=== PATIENT | male | born 1955 | race Caucasian/White ===

== ENCOUNTER 2018-01-12 14:02 | Inpatient (IN) | payer BC ==
[~2018-01-12] VITALS: Ht 175.3 cm; Wt 60.8 kg
--- NOTE | ~2018-01-12 | MORECARE ---
CASE MANAGEMENT DISCHARGE SUMMARY PATIENT: JANETT TORRES UNIT: [id number] ADM DATE: 01/12/18 AGE: 62 : 54 SEX: M ROOM/BED: D.1208 AUTHOR: DONATO BARILLAS PHYSICIAN: REFERRING PHYSICIAN: JAVI ANDERSON MD DATE OF SERVICE: 01/21/18 Discharge Plan Patient Name: JANETT TORRES Facility: [facility]:[place] : 1955 Planned Disposition: Anticipated Discharge Date: Discharge Date: Expected LOS: Initial Reviewer: [email or web address] Initial Review Date: 01/13/2018 Generated: 01/21/18 7:09 pm Comments DCP- Discharge Planning Updated by [id number]: Annie De La Cruz on 01/21/18 5:[address] CM received call earlier today that patient son would like to speak with me. TILA called Tacho [phone] this afternoon. He requested for patient FP doctor to call him. CM gave Dr. Bennett that request. Tacho wanting to speak to Dr. Bennett about quality of life and patient prognosis. Tacho plans to come visit with his parents this evening after he speaks with MD. Tacho wants to know what patients wishes are once he knows all the facts. Dr. Bennett attempted to call Tacho but didn't get an answer and mail box was full. CM will continue to follow and assist as needed with discharge planning / needs DCP- Discharge Planning Updated by [id number]: Miroslava Kennedy on 01/13/18 4:[address] Patient Name: JANETT TORRES Admission Status: ER Accout number: [id number] Admission Date: 01-12-2018 : 1955 Admission Diagnosis: Attending: JAVI ANDERSON Current LOS: 1 Anticipated DC Date: Planned Disposition: Primary Insurance: [employer] Discharge Planning Comments: CM MET WITH PATIENT ABOUT DC PLANNING/NEEDS. STATES PLANS TO DC HOME WITH WHEN BETTER. STATES USES A WALKER AT HOME. NO NEEDS IDENTIFIED AT THIS TIME. CM WILL FOLLOW AND ASSIST NEEDED WITH DC PLANNING/NEEDS. Boiler Repair Supervisor: Miroslava Kennedy DCPIA - Discharge Planning Initial Assessment Updated by [email or web address]: Miroslava Kennedy on 01/13/18 5:03 pm * Is the patient Alert and Oriented? Yes * PCP LEIDA * Pharmacy [facility] IN [facility] * Preadmission Environment Home with Family * ADLs Partial Dependent * Partial ADLs (Assistance needed) Ambulation * Equipment Elevated [place] Seat Shower Chair Walker * List name and contact numbers for known caregivers / representatives who currently or will assist patient after discharge: MELISSA ANDERSEN, , * Community resources currently utilized None * Has this patient been hospitalized within the prior 30 days at any hospital? No Last DP export: 01/13/18 4:11 Patient Name: JANETT TORRES Page [id number] at 1809 All edits/amendments must be made on the electronic document DICTATION DATE: 01/21/181808 WINDOWS APPLICATION PACKAGER: NIURKA 01/21/181808 RPT#: [id number] DC DATE: STATUS: ADM IN [facility] [address] [place] [address] END OF REPORT
--- NOTE | ~2018-01-12 | MORECARE ---
CASE MANAGEMENT DISCHARGE SUMMARY PATIENT: JANETT TORRES UNIT: [id number] ADM DATE: 01/12/18 AGE: 62 : 54 SEX: M ROOM/BED: D.1208 AUTHOR: DONATO BARILLAS PHYSICIAN: REFERRING PHYSICIAN: JAVI ANDERSON MD DATE OF SERVICE: 01/24/18 Discharge Plan Patient Name: JANETT TORRES Facility: [facility]:[place] : 1955 Planned Disposition: Anticipated Discharge Date: Discharge Date: 01/22/2018 Expected LOS: Initial Reviewer: [email or web address] Initial Review Date: 01/13/2018 Generated: 01/24/18 10:56 am Comments DCP- Discharge Planning Updated by [email or web address]: Marilyn Markham on 01/22/18 4:[address] 0920 CM RECEIVED TELEPHONE CALL FROM PRIMARY NURSE, , REGARDING HOSPICE. THE FAMILY HAD SPOKEN WITH [facility]. THE PATIENT'S FAMILY WAS FAMILIAR WITH [facility]. ADVISED TO CALL MD TO GET HOSPICE ORDER FOR EVALUATION AND ADMIT. 1030 CM RECEIVED TELEPHONE CALL FROM NATHANIEL FROM [facility] REGARDING PATIENT. NURSE WILL BE ON SITE TO [facility]. CM FAXED CLINICAL FOR REVIEW. 1430 MARLY FROM [facility] WAS ON SITE. AWAITED DECISION REGARDING ACCEPTANCE AND PLAN. 1715 PATIENT DISCHARGED TO HOME ON HOSPICE CARE WITH [facility]. DCP- Discharge Planning Updated by [email or web address]: Annie De La Cruz on 01/21/18 5:[address] CM received call earlier today that patient son would like to speak with me. TILA called Tacho [phone] this afternoon. He requested for patient FP doctor to call him. TILA gave Dr. Bennett that request. Tacho wanting to speak to Dr. Bennett about quality of life and patient prognosis. Tacho plans to come visit with his parents this evening after he speaks with MD. Tacho wants to know what patients wishes are once he knows all the facts. Dr. Bennett attempted to call Tacho but didn't get an answer and mail box was full. CM will continue to follow and assist as needed with discharge planning / needs DCP- Discharge Planning Updated by [email or web address]: Miroslava Kennedy on 01/13/18 4:[address] Patient Name: JANETT TORRES Admission Status: ER Accout number: [id number] Admission Date: 01-12-2018 : 1955 Admission Diagnosis: Attending: JAVI ANDERSON Current LOS: 1 Anticipated DC Date: Planned Disposition: Primary Insurance: [employer] [facility] Discharge Planning Comments: CM MET WITH PATIENT ABOUT DC PLANNING/NEEDS. STATES PLANS TO DC HOME WITH WHEN BETTER. STATES USES A WALKER AT HOME. NO NEEDS IDENTIFIED AT THIS TIME. CM WILL FOLLOW AND ASSIST NEEDED WITH DC PLANNING/NEEDS. Flue Cleaner: Miroslava Kennedy DCPIA - Discharge Planning Initial Assessment Updated by [email or web address]: Miroslava Kennedy on 01/13/18 5:03 pm * Is the patient Alert and Oriented? Yes * PCP LEIDA * Pharm[facility] * Preadmission Environment Home with Family * ADLs Partial Dependent * Partial ADLs (Assistance needed) Ambulation * Equipment Elevated [place] Seat Shower Chair Walker * List name and contact numbers for known caregivers / representatives who currently or will assist patient after discharge: MELISSA ANDERSEN, , * Community resources currently utilized None * Has this patient been hospitalized within the prior 30 days at any hospital? No Last DP export: 01/22/18 4:31 Patient Name: JANETT TORRES Page [phone] at 0956 All edits/amendments must be made on the electronic document DICTATION DATE: 01/24/18954 PLATE GLASS GRINDER: NIURKA 01/24/18954 RPT#: [id number] DC DATE:01/22/18 STATUS: DIS IN [facility] [address] [place] [address] END OF REPORT
--- NOTE | ~2018-01-12 | MORECARE ---
CASE MANAGEMENT DISCHARGE SUMMARY PATIENT: JANETT TORRES UNIT: [id number] ADM DATE: 01/12/18 AGE: 62 : 54 SEX: M ROOM/BED: D.1208 AUTHOR: ERANDOC PHYSICIAN: REFERRING PHYSICIAN: JAVI ANDERSON MD DATE OF SERVICE: 01/22/18 Discharge Plan Patient Name: JANETT TORRES Facility: [facility]:[place] : 1955 Planned Disposition: Anticipated Discharge Date: Discharge Date: Expected LOS: Initial Reviewer: [email or web address] Initial Review Date: 01/13/2018 Generated: 01/22/18 6:31 pm Comments DCP- Discharge Planning Updated by [email or web address]: Marilyn Markham on 01/22/18 4:[address] 0920 CM RECEIVED TELEPHONE CALL FROM PRIMARY NURSE, , REGARDING HOSPICE. THE FAMILY HAD SPOKEN WITH [facility]. THE PATIENT'S FAMILY WAS FAMILIAR WITH [place]. ADVISED TO CALL MD TO GET HOSPICE ORDER FOR EVALUATION AND ADMIT. 1030 CM RECEIVED TELEPHONE CALL FROM NATHANIEL FROM [facility] REGARDING PATIENT. NURSE WILL BE ON SITE TO [facility]. CM FAXED CLINICAL FOR REVIEW. 1430 MARLY FROM [place] WAS ON SITE. AWAITED DECISION REGARDING ACCEPTANCE AND PLAN. 1715 PATIENT DISCHARGED TO HOME ON HOSPICE CARE WITH [place]. DCP- Discharge Planning Updated by [email or web address]: Annie De La Cruz on 01/21/18 5:[address] CM received call earlier today that patient son would like to speak with me. TILA called Tacho [phone] this afternoon. He requested for patient FP doctor to call him. gave Dr. Bennett that request. Tacho wanting to speak to Dr. Bennett about quality of life and patient prognosis. Tacho plans to come visit with his parents this evening after he speaks with MD. Tacho wants to know what patients wishes are once he knows all the facts. Dr. Bennett attempted to call [place] but didn't get an answer and mail box was full. CM will continue to follow and assist as needed with discharge planning / needs DCP- Discharge Planning Updated by [email or web address]: Miroslava Kennedy on 01/13/18 4:[address] Patient Name: JANETT TORRES Admission Status: ER Accout number: [id number] Admission Date: 01-12-2018 : 1955 Admission Diagnosis: Attending: JAVI NADERSON Current LOS: 1 Anticipated DC Date: Planned Disposition: Primary Insurance: [employer] [facility] Discharge Planning Comments: CM MET WITH PATIENT ABOUT DC PLANNING/NEEDS. STATES PLANS TO DC HOME WITH WHEN BETTER. STATES USES A WALKER AT HOME. NO NEEDS IDENTIFIED AT THIS TIME. CM WILL FOLLOW AND ASSIST NEEDED WITH DC PLANNING/NEEDS. American Indian Policy Specialist: Miroslava Kennedy DCPIA - Discharge Planning Initial Assessment Updated by [email or web address]: Miroslava Kennedy on 01/13/18 5:03 pm * Is the patient Alert and Oriented? Yes * PCP LEIDA * Pharmacy [facility] * Preadmission Environment Home with Family * ADLs Partial Dependent * Partial ADLs (Assistance needed) Ambulation * Equipment Elevated [place] Seat Shower Chair Walker * List name and contact numbers for known caregivers / representatives who currently or will assist patient after discharge: MELISSA ANDERSEN, , * Community resources currently utilized None * Has this patient been hospitalized within the prior 30 days at any hospital? No Last DP export: 01/21/18 5:09 Patient Name: JANETT TORRES Page [phone] at 1731 All edits/amendments must be made on the electronic document DICTATION DATE: 01/22/181730 SHERIFF DETECTIVE: NIURKA 01/22/181730 RPT#: [id number] DC DATE: STATUS: ADM IN [facility] [address] [place] [address] END OF REPORT
--- NOTE | ~2018-01-12 | OP ---
PATIENT NAME: JANETT TORRES MEDICAL RECORD: [id number] :53 LOCATION:D.M3 D.1208 ADMISSION DATE:01/12/18 SURGEON: JOHN PALMER MD DATE OF OPERATION: 01/15/2018 PREOPERATIVE DIAGNOSES: 1. Pneumoperitoneum. 2. The patient will be n.p.o. and will need total parenteral nutrition via central route. 3. Stage IV lung cancer. POSTOPERATIVE DIAGNOSES: 1. Pneumoperitoneum. 2. The patient will be n.p.o. and will need total parenteral nutrition via central route. 3. Stage IV lung cancer. PROCEDURE: Insertion of right neck triple-lumen central venous catheter. SURGEON: John Palmer MD DIRECTOR OF EMPLOYEE DEVELOPMENT: None. BLOOD LOSS: Minimal. ANESTHESIA: Local. COMPLICATIONS: None. The risks, possible complications, and alternatives to procedure were explained to the patient. He elects to proceed. The risks specifically included, but was not limited to, bleeding requiring emergency reoperation, infection, worsening in his condition, the possible need for colostomy, possible need for laparotomy or laparoscopy. OPERATIVE COURSE: The patient was positioned in the Trendelenburg position. The entire procedure was performed with the presence of a nurse. The patient was somewhat combative during the procedure, which made the procedure more difficult. The right neck was sterilely prepped and draped. Local anesthetic was used to infiltrate the skin and subcutaneous tissues at the base of the right neck. The right internal jugular vein was percutaneously accessed in an antegrade fashion. A guidewire would only provide for a short distance. I accessed the internal jugular vein several other times and I could not get the guidewire to thread very far. The patient has had radiation to the chest and it may be that he has some central stenoses due to radiation. Utilizing a supraclavicular subclavian approach, I percutaneously accessed the right subclavian vein. Guidewire passed easily. A small skin sinan was accomplished. A vessel dilator was used to dilate a subcutaneous tract. A 16 cm triple lumen central venous catheter was inserted to the hub. It was sutured in place times 3. All lumens flushed easily and aspirated dark, nonpulsatile blood. OPERATIVE REPORT [id number] JANETT TORRES A stat portable chest x-ray is pending. TRANSINT:[id number] Voice Confirmation ID: [id number] DOCUMENT ID: [id number] JOHN PALMER MD at 1709 CC: [id number] DICTATION DATE: 01/15/181826 PAEDIATRIC SURGEON: 01/15/18 2254 ADM IN [place] [id number] [place] [id number]
[2018-01-12 15:04] LABS: APPEARANCE CLEAR (CLEAR); BILIRUBIN NEGATIVE (NEGATIVE); COLOR YELLOW (YELLOW); GLUCOSE NEGATIVE (NEGATIVE); KETONE NEGATIVE (NEGATIVE); NITRITE NEGATIVE (NEGATIVE); PROTEIN TRACE mg/dL (NEGATIVE); UROBILINOGEN NORMAL (NORMAL)
[2018-01-12 15:52] LABS: ALBUMIN 1.9 g/dL (3.4-5.0); ALKALINE PHOSPHATASE 103 U/L (46-116); ALT (SGPT) 27 U/L (10-68); BILIRUBIN - TOTAL 0.36 mg/dL (0.2-1.3); CALC OSMOLALITY 281 mosm/kg (275-300); CALCIUM 8.8 mg/dL (8.5-10.1); CARBON DIOXIDE 26.8 mmol/L (21.0-32.0); CHLORIDE - SERUM 103 mmol/L (98-107); CREATININE - SERUM 0.7 mg/dL (0.6-1.3); GLUCOSE 122 mg/dL (74-106); POTASSIUM - SERUM 4.3 mmol/L (3.5-5.1); PROTEIN - SERUM 5.3 g/dL (6.4-8.2); SODIUM 140 mmol/L (136-145); UREA NITROGEN 19 mg/dL (7-18); eGFR NON AFRICAN AMERICAN > 90 mL/min (90-120)
[2018-01-12 16:02] LABS: CKMB 1.1 U/L (0.0-3.6); CREATINE KINASE 14 UL (21-232); LIPASE 293 U/L (73-393)
[2018-01-12 16:06] LABS: BASOPHILS 0.4 % (0-2); EOSINOPHILS 0.4 % (0-7); HEMATOCRIT 36.8 % (42.0-54.0); HEMOGLOBIN 12.1 g/dL (13.5-17.5); IMMATURE GRANULOCYTES 1.3 % (0-5); LYMPHOCYTES 11.9 % (15-50); MCH 26.2 pg (26.0-34.0); MCHC 32.9 g/dL (31.0-37.0); MCV 79.8 fL (80.0-100.0); MONOCYTES 5.6 % (2-11); NEUTROPHILS 80.4 % (40-80); PLATELET COUNT 116 10x3/uL (130-400); RBC 4.61 10x6/uL (4.20-6.10); RDW 21.6 % (11.5-14.5); TROPONIN-I < 0.017 ng/mL (0.000-0.060); WBC 5.4 10x3/uL (4.8-10.8)
[2018-01-12 20:00] VITALS: BP 92/56
[2018-01-12 23:17] VITALS: BP 92/56; BMI 19.8
[2018-01-13] VITALS (7 sets, daily range): BP systolic 88–122; BP diastolic 53–76; BMI 19.8
[2018-01-13] MEDS ORDERED: XANAX0.5 MG PO (03:23)
[2018-01-13] MEDS ORDERED: ASPIRIN325 MG PO (03:24)
[2018-01-13] MEDS ORDERED: LIPITOR40 MG PO (03:24)
[2018-01-13] MEDS ORDERED: COLACE100 MG PO (03:25)
[2018-01-13] MEDS ORDERED: DECADRON4 MG PO (03:25)
[2018-01-13] MEDS ORDERED: REMERON30 MG PO (03:26)
[2018-01-13] MEDS ORDERED: LOPRESSOR25 MG PO (03:26)
[2018-01-13] MEDS ORDERED: OXYCODONE-APAP1 TAB PO (03:27)
[2018-01-13] MEDS ORDERED: FOLIC ACID1 MG PO (03:28)
[2018-01-13 08:13] LABS: BASOPHILS 0.1 % (0-2); EOSINOPHILS 0 % (0-7); HEMATOCRIT 33.1 % (42.0-54.0); HEMOGLOBIN 10.5 g/dL (13.5-17.5); IMMATURE GRANULOCYTES 1.6 % (0-5); LYMPHOCYTES 9.9 % (15-50); MCH 25.7 pg (26.0-34.0); MCHC 31.7 g/dL (31.0-37.0); MCV 80.9 fL (80.0-100.0); MONOCYTES 5.5 % (2-11); NEUTROPHILS 82.9 % (40-80); PLATELET COUNT 101 10x3/uL (130-400); RBC 4.09 10x6/uL (4.20-6.10); RDW 21.8 % (11.5-14.5)
[2018-01-13 08:22] LABS: WBC 8.1 10x3/uL (4.8-10.8)
[2018-01-13 08:39] LABS: CALC OSMOLALITY 269 mosm/kg (275-300); CALCIUM 8.9 mg/dL (8.5-10.1); CARBON DIOXIDE 20.4 mmol/L (21.0-32.0); CHLORIDE - SERUM 104 mmol/L (98-107); GLUCOSE 78 mg/dL (74-106); POTASSIUM - SERUM 4.2 mmol/L (3.5-5.1); SODIUM 135 mmol/L (136-145); UREA NITROGEN 15 mg/dL (7-18)
[2018-01-13 08:41] LABS: CREATININE - SERUM 0.4 mg/dL (0.6-1.3); eGFR NON AFRICAN AMERICAN > 90 mL/min (90-120)
[2018-01-13 10:57] LABS: FERRITIN 615 ng/mL (3-244); PRO BNP 1934 pg/mL (0-125)
[2018-01-13 11:28] LABS: % SATURATION 6 % (15-55); IRON 9 ug/dl (35-150); TOTAL IRON BIND CAPACITY 144 ug/dl (260-445); UNSAT IRON BIND CAPACITY 135 ug/dl (150-375)
[2018-01-14 04:00] VITALS: BP 111/64
[2018-01-14 05:41] LABS: BASOPHILS 0.1 % (0-2); EOSINOPHILS 0 % (0-7); HEMATOCRIT 33.9 % (42.0-54.0); IMMATURE GRANULOCYTES 2.9 % (0-5); LYMPHOCYTES 4.1 % (15-50); MCH 25.9 pg (26.0-34.0); MCHC 32.4 g/dL (31.0-37.0); MCV 79.8 fL (80.0-100.0); MONOCYTES 2.7 % (2-11); NEUTROPHILS 90.2 % (40-80); RBC 4.25 10x6/uL (4.20-6.10); RDW 21.6 % (11.5-14.5)
[2018-01-14 05:43] LABS: PLATELET COUNT 124 10x3/uL (130-400); WBC 11.8 10x3/uL (4.8-10.8)
[2018-01-14 05:47] LABS: CALC OSMOLALITY 272 mosm/kg (275-300); CALCIUM 8.7 mg/dL (8.5-10.1); CARBON DIOXIDE 22.3 mmol/L (21.0-32.0); CHLORIDE - SERUM 104 mmol/L (98-107); CREATININE - SERUM 0.3 mg/dL (0.6-1.3); GLUCOSE 104 mg/dL (74-106); POTASSIUM - SERUM 3.8 mmol/L (3.5-5.1); SODIUM 137 mmol/L (136-145); UREA NITROGEN 11 mg/dL (7-18); eGFR NON AFRICAN AMERICAN > 90 mL/min (90-120)
[2018-01-14 07:52] VITALS: BP 111/69
[2018-01-14 08:21] LABS: FOLATE (FOLIC ACID) - SERUM 16.3 ng/mL (>3.0)
[2018-01-14 11:32] VITALS: BP 94/56
[2018-01-14 15:28] VITALS: BP 118/60
[2018-01-14 20:06] VITALS: BP 127/68
[2018-01-15] VITALS (7 sets, daily range): BP systolic 110–160; BP diastolic 63–77; Ht 175.3 cm; Wt 60.8 kg
[2018-01-15 06:27] LABS: BASOPHILS 0.1 % (0-2); EOSINOPHILS 0 % (0-7); HEMATOCRIT 35.3 % (42.0-54.0); HEMOGLOBIN 11.5 g/dL (13.5-17.5); IMMATURE GRANULOCYTES 3.3 % (0-5); LYMPHOCYTES 4.7 % (15-50); MCH 25.8 pg (26.0-34.0); MCHC 32.6 g/dL (31.0-37.0); MCV 79.3 fL (80.0-100.0); MEAN PLATELET VOLUME 10.8 fL (7.4-10.4); MONOCYTES 5.1 % (2-11); NEUTROPHILS 86.8 % (40-80); RBC 4.45 10x6/uL (4.20-6.10); RDW 21.5 % (11.5-14.5)
[2018-01-15 06:31] LABS: PLATELET COUNT 151 10x3/uL (130-400); WBC 15.2 10x3/uL (4.8-10.8)
[2018-01-15 06:44] LABS: CARBON DIOXIDE 22.4 mmol/L (21.0-32.0); CHLORIDE - SERUM 106 mmol/L (98-107); GLUCOSE 112 mg/dL (74-106); POTASSIUM - SERUM 3.8 mmol/L (3.5-5.1); SODIUM 139 mmol/L (136-145)
[2018-01-15 06:46] LABS: CALC OSMOLALITY 279 mosm/kg (275-300); UREA NITROGEN 14 mg/dL (7-18)
[2018-01-15 06:47] LABS: CREATININE - SERUM 0.5 mg/dL (0.6-1.3); eGFR NON AFRICAN AMERICAN > 90 mL/min (90-120)
[2018-01-16 00:04] VITALS: BP 120/75
[2018-01-16 06:31] LABS: HEMATOCRIT 36.9 % (42.0-54.0); HEMOGLOBIN 12.1 g/dL (13.5-17.5); MCH 26.1 pg (26.0-34.0); MCHC 32.8 g/dL (31.0-37.0); MCV 79.7 fL (80.0-100.0); MEAN PLATELET VOLUME 10.3 fL (7.4-10.4); PLATELET COUNT 183 10x3/uL (130-400); RBC 4.63 10x6/uL (4.20-6.10); RDW 21.5 % (11.5-14.5); WBC 28.2 10x3/uL (4.8-10.8)
[2018-01-16 06:59] VITALS: BP 152/73
[2018-01-16 06:59] LABS: ALKALINE PHOSPHATASE 114 U/L (46-116); ALT (SGPT) 33 U/L (10-68); AMYLASE - SERUM 47 U/L (25-115); BILIRUBIN - TOTAL 0.34 mg/dL (0.2-1.3); CALC OSMOLALITY 274 mosm/kg (275-300); CALCIUM 8.9 mg/dL (8.5-10.1); CARBON DIOXIDE 18.2 mmol/L (21.0-32.0); CHLORIDE - SERUM 104 mmol/L (98-107); GLUCOSE 87 mg/dL (74-106); LIPASE 97 U/L (73-393); MAGNESIUM - SERUM 1.6 mg/dL (1.8-2.4); PHOSPHOROUS 3.8 mg/dL (2.5-4.9); POTASSIUM - SERUM 4.1 mmol/L (3.5-5.1); PROTEIN - SERUM 6.1 g/dL (6.4-8.2); SODIUM 137 mmol/L (136-145); UREA NITROGEN 17 mg/dL (7-18)
[2018-01-16 07:00] LABS: CREATININE - SERUM 0.7 mg/dL (0.6-1.3); TROPONIN-I < 0.017 ng/mL (0.000-0.060); eGFR NON AFRICAN AMERICAN > 90 mL/min (90-120)
[2018-01-16 07:25] LABS: LYMPHOCYTES 13 % (15-50); MONOCYTES 4 % (2-11); NEUTROPHILS 80 % (40-80); PLATELET ESTIMATE DECREASED
[2018-01-16 08:00] VITALS: BP 128/74
[2018-01-16 16:00] VITALS: BP 110/67
[2018-01-16 19:51] VITALS: BP 134/77
[2018-01-17 04:00] VITALS: BP 121/66
[2018-01-17 05:50] LABS: CALC OSMOLALITY 274 mosm/kg (275-300); CALCIUM 8.8 mg/dL (8.5-10.1); CARBON DIOXIDE 22.6 mmol/L (21.0-32.0); CHLORIDE - SERUM 103 mmol/L (98-107); CREATININE - SERUM 0.6 mg/dL (0.6-1.3); GLUCOSE 91 mg/dL (74-106); POTASSIUM - SERUM 3.8 mmol/L (3.5-5.1); SODIUM 137 mmol/L (136-145); UREA NITROGEN 15 mg/dL (7-18); eGFR NON AFRICAN AMERICAN > 90 mL/min (90-120)
[2018-01-17 06:21] LABS: BASOPHILS 0.1 % (0-2); EOSINOPHILS 0 % (0-7); HEMATOCRIT 34.5 % (42.0-54.0); HEMOGLOBIN 11.1 g/dL (13.5-17.5); IMMATURE GRANULOCYTES 3.8 % (0-5); LYMPHOCYTES 5.7 % (15-50); MCH 25.8 pg (26.0-34.0); MCHC 32.2 g/dL (31.0-37.0); MEAN PLATELET VOLUME 11.1 fL (7.4-10.4); MONOCYTES 8.3 % (2-11); NEUTROPHILS 82.1 % (40-80); PLATELET COUNT 214 10x3/uL (130-400); RBC 4.31 10x6/uL (4.20-6.10); RDW 21.3 % (11.5-14.5); WBC 25.9 10x3/uL (4.8-10.8)
[2018-01-17 07:36] VITALS: BP 102/56
[2018-01-17 12:00] VITALS: BP 102/57
[2018-01-17 16:00] VITALS: BP 116/67
[2018-01-17 19:57] VITALS: BP 99/57
[2018-01-18 04:00] VITALS: BP 108/64
[2018-01-18 06:19] LABS: BASOPHILS 0.1 % (0-2); EOSINOPHILS 0 % (0-7); HEMATOCRIT 32.7 % (42.0-54.0); HEMOGLOBIN 10.5 g/dL (13.5-17.5); IMMATURE GRANULOCYTES 4.5 % (0-5); MCH 26.2 pg (26.0-34.0); MCHC 32.1 g/dL (31.0-37.0); MCV 81.5 fL (80.0-100.0); MEAN PLATELET VOLUME 11.1 fL (7.4-10.4); MONOCYTES 4.7 % (2-11); NEUTROPHILS 85.7 % (40-80); PLATELET COUNT 186 10x3/uL (130-400); RBC 4.01 10x6/uL (4.20-6.10); RDW 21.5 % (11.5-14.5); WBC 30.5 10x3/uL (4.8-10.8)
[2018-01-18 07:28] LABS: CALCIUM 8.4 mg/dL (8.5-10.1); CARBON DIOXIDE 25.2 mmol/L (21.0-32.0); CHLORIDE - SERUM 100 mmol/L (98-107); CREATININE - SERUM 0.6 mg/dL (0.6-1.3); MAGNESIUM - SERUM 1.8 mg/dL (1.8-2.4); PHOSPHOROUS 2.5 mg/dL (2.5-4.9); SODIUM 134 mmol/L (136-145); UREA NITROGEN 15 mg/dL (7-18); eGFR NON AFRICAN AMERICAN > 90 mL/min (90-120)
[2018-01-18 07:29] LABS: CALC OSMOLALITY 280 mosm/kg (275-300); GLUCOSE 314 mg/dL (74-106); POTASSIUM - SERUM 3.2 mmol/L (3.5-5.1)
[2018-01-18 08:28] VITALS: BP 120/78
[2018-01-18 20:25] VITALS: BP 107/57
[2018-01-19 00:33] VITALS: BP 124/53
[2018-01-19 05:19] VITALS: BP 105/51
[2018-01-19 06:19] LABS: BASOPHILS 0.1 % (0-2); EOSINOPHILS 0 % (0-7); HEMATOCRIT 29.8 % (42.0-54.0); HEMOGLOBIN 9.5 g/dL (13.5-17.5); IMMATURE GRANULOCYTES 2.7 % (0-5); LYMPHOCYTES 5.1 % (15-50); MCH 25.7 pg (26.0-34.0); MCHC 31.9 g/dL (31.0-37.0); MCV 80.5 fL (80.0-100.0); MEAN PLATELET VOLUME 10.5 fL (7.4-10.4); MONOCYTES 3.9 % (2-11); NEUTROPHILS 88.2 % (40-80); PLATELET COUNT 198 10x3/uL (130-400); RDW 21.6 % (11.5-14.5); WBC 26.5 10x3/uL (4.8-10.8)
[2018-01-19 06:47] LABS: ALBUMIN 1.6 g/dL (3.4-5.0); ALKALINE PHOSPHATASE 86 U/L (46-116); ALT (SGPT) 14 U/L (10-68); BILIRUBIN - TOTAL 0.32 mg/dL (0.2-1.3); CALC OSMOLALITY 277 mosm/kg (275-300); CALCIUM 8.4 mg/dL (8.5-10.1); CARBON DIOXIDE 25.9 mmol/L (21.0-32.0); CHLORIDE - SERUM 105 mmol/L (98-107); CREATININE - SERUM 0.6 mg/dL (0.6-1.3); GLUCOSE 85 mg/dL (74-106); MAGNESIUM - SERUM 1.8 mg/dL (1.8-2.4); PHOSPHOROUS 2.5 mg/dL (2.5-4.9); POTASSIUM - SERUM 3.4 mmol/L (3.5-5.1); SODIUM 139 mmol/L (136-145); UREA NITROGEN 14 mg/dL (7-18); VANCOMYCIN - TROUGH 17.4 ug/mL (10.0-20.0); eGFR NON AFRICAN AMERICAN > 90 mL/min (90-120)
[2018-01-19 07:19] VITALS: BP 132/62
[2018-01-19 11:34] VITALS: BP 114/61
[2018-01-19 15:20] VITALS: BP 113/60
[2018-01-19 20:00] VITALS: BP 93/54
[2018-01-20] VITALS (7 sets, daily range): BP systolic 100–126; BP diastolic 58–65
[2018-01-20 06:57] LABS: BASOPHILS 0.1 % (0-2); EOSINOPHILS 0 % (0-7); HEMATOCRIT 29.5 % (42.0-54.0); HEMOGLOBIN 9.6 g/dL (13.5-17.5); IMMATURE GRANULOCYTES 1.8 % (0-5); LYMPHOCYTES 3.5 % (15-50); MCH 26.4 pg (26.0-34.0); MCHC 32.5 g/dL (31.0-37.0); MCV 81.3 fL (80.0-100.0); MEAN PLATELET VOLUME 10.5 fL (7.4-10.4); MONOCYTES 3.9 % (2-11); NEUTROPHILS 90.7 % (40-80); PLATELET COUNT 199 10x3/uL (130-400); RBC 3.63 10x6/uL (4.20-6.10); RDW 22.1 % (11.5-14.5); WBC 37.2 10x3/uL (4.8-10.8)
[2018-01-20 07:16] LABS: ALBUMIN 1.5 g/dL (3.4-5.0); ALKALINE PHOSPHATASE 109 U/L (46-116); ALT (SGPT) 14 U/L (10-68); BILIRUBIN - TOTAL 0.45 mg/dL (0.2-1.3); CALC OSMOLALITY 274 mosm/kg (275-300); CALCIUM 8.5 mg/dL (8.5-10.1); CARBON DIOXIDE 24.2 mmol/L (21.0-32.0); CHLORIDE - SERUM 104 mmol/L (98-107); CREATININE - SERUM 0.6 mg/dL (0.6-1.3); GLUCOSE 140 mg/dL (74-106); MAGNESIUM - SERUM 1.8 mg/dL (1.8-2.4); POTASSIUM - SERUM 3.1 mmol/L (3.5-5.1); PROTEIN - SERUM 5.1 g/dL (6.4-8.2); SODIUM 136 mmol/L (136-145); UREA NITROGEN 14 mg/dL (7-18); VANCOMYCIN - TROUGH 19.8 ug/mL (10.0-20.0); eGFR NON AFRICAN AMERICAN > 90 mL/min (90-120)
[2018-01-21 04:00] VITALS: BP 125/59
[2018-01-21 06:41] LABS: BASOPHILS 0.1 % (0-2); EOSINOPHILS 0.1 % (0-7); HEMATOCRIT 29.1 % (42.0-54.0); HEMOGLOBIN 9.3 g/dL (13.5-17.5); IMMATURE GRANULOCYTES 1.4 % (0-5); LYMPHOCYTES 3.8 % (15-50); MCH 26.1 pg (26.0-34.0); MCV 81.7 fL (80.0-100.0); MONOCYTES 3.6 % (2-11); PLATELET COUNT 208 10x3/uL (130-400); RBC 3.56 10x6/uL (4.20-6.10); RDW 22.6 % (11.5-14.5); WBC 36.6 10x3/uL (4.8-10.8)
[2018-01-21 06:58] LABS: ALBUMIN 1.5 g/dL (3.4-5.0); ALKALINE PHOSPHATASE 122 U/L (46-116); ALT (SGPT) 14 U/L (10-68); BILIRUBIN - TOTAL 0.49 mg/dL (0.2-1.3); CALC OSMOLALITY 272 mosm/kg (275-300); CALCIUM 8.4 mg/dL (8.5-10.1); CARBON DIOXIDE 19.5 mmol/L (21.0-32.0); CHLORIDE - SERUM 105 mmol/L (98-107); CREATININE - SERUM 0.6 mg/dL (0.6-1.3); GLUCOSE 136 mg/dL (74-106); MAGNESIUM - SERUM 1.8 mg/dL (1.8-2.4); PHOSPHOROUS 2.4 mg/dL (2.5-4.9); POTASSIUM - SERUM 3.5 mmol/L (3.5-5.1); PROTEIN - SERUM 5.2 g/dL (6.4-8.2); SODIUM 135 mmol/L (136-145); UREA NITROGEN 16 mg/dL (7-18); eGFR NON AFRICAN AMERICAN > 90 mL/min (90-120)
[2018-01-21 08:09] VITALS: BP 107/67
[2018-01-21 17:00] VITALS: BP 104/80
[2018-01-21 19:25] VITALS: BP 102/53
[2018-01-22 00:32] VITALS: BP 104/62
[2018-01-22 04:45] VITALS: BP 105/55
[2018-01-22 06:40] LABS: BASOPHILS 0.1 % (0-2); EOSINOPHILS 0 % (0-7); HEMOGLOBIN 9.5 g/dL (13.5-17.5); LYMPHOCYTES 3.1 % (15-50); MCH 26.3 pg (26.0-34.0); MCHC 32.8 g/dL (31.0-37.0); MCV 80.3 fL (80.0-100.0); MEAN PLATELET VOLUME 11.1 fL (7.4-10.4); MONOCYTES 5.4 % (2-11); NEUTROPHILS 90.4 % (40-80); PLATELET COUNT 233 10x3/uL (130-400); RBC 3.61 10x6/uL (4.20-6.10); RDW 22.7 % (11.5-14.5)
[2018-01-22 06:49] LABS: ALBUMIN 1.6 g/dL (3.4-5.0); ALKALINE PHOSPHATASE 138 U/L (46-116); BILIRUBIN - TOTAL 0.51 mg/dL (0.2-1.3); CALC OSMOLALITY 274 mosm/kg (275-300); CALCIUM 9.1 mg/dL (8.5-10.1); CARBON DIOXIDE 21.6 mmol/L (21.0-32.0); CHLORIDE - SERUM 104 mmol/L (98-107); CREATININE - SERUM 0.6 mg/dL (0.6-1.3); GLUCOSE 91 mg/dL (74-106); PHOSPHOROUS 2.8 mg/dL (2.5-4.9); POTASSIUM - SERUM 3.8 mmol/L (3.5-5.1); PROTEIN - SERUM 5.6 g/dL (6.4-8.2); SODIUM 137 mmol/L (136-145); UREA NITROGEN 14 mg/dL (7-18); eGFR NON AFRICAN AMERICAN > 90 mL/min (90-120)
[2018-01-22 06:54] LABS: ALT (SGPT) 22 U/L (10-68)
[2018-01-22 07:23] VITALS: BP 81/51; BP 95/51
[2018-01-22 11:02] VITALS: BP 98/55
[2018-01-22] MEDS ORDERED: ELIQUIS5 MG PO (11:41)
[2018-01-22] MEDS ORDERED: TRAZODONE HCL100 MG PO (11:41)
[2018-01-22] MEDS ORDERED: MEGACE400 MG/10 PO (11:42)
[2018-01-22] MEDS ORDERED: MELATONIN 3 MG1 TAB PO (11:42)
[2018-01-22] MEDS ORDERED: NICOTINE (14:08)
== END 2018-01-22 17:00 | disposition home health service (06) | DRG 193 ==
LOC: D.ER 14:02 → D.EDHOLD 17:59 → D.M3 17:59
PROVIDERS: Emergency Medicine; Internal Medicine Nephrology; Surgery
PROC: 02HV33Z Insertion of Infusion Device into Superior Vena Cava, Percutaneous Approach (ICD-10-PCS; principal; 2018-01-15)
PROC: B548ZZA Ultrasonography of Superior Vena Cava, Guidance (ICD-10-PCS; 2018-01-15)
DX: J18.9 Pneumonia, unspecified organism (principal); E43 Unspecified severe protein-calorie malnutrition; J44.0 Chronic obstructive pulmonary disease with (acute) lower respiratory infection; N17.9 Acute kidney failure, unspecified; C34.90 Malignant neoplasm of unspecified part of unspecified bronchus or lung; C78.7 Secondary malignant neoplasm of liver and intrahepatic bile duct; C79.51 Secondary malignant neoplasm of bone; Z68.1 Body mass index [BMI] 19.9 or less, adult; I82.623 Acute embolism and thrombosis of deep veins of upper extremity, bilateral; D64.9 Anemia, unspecified; I10 Essential (primary) hypertension; E78.5 Hyperlipidemia, unspecified; I25.10 Atherosclerotic heart disease of native coronary artery without angina pectoris; K59.09 Other constipation; Z95.1 Presence of aortocoronary bypass graft; Z72.0 Tobacco use